=== PATIENT | female | born 1965 | race Caucasian/White ===

== ENCOUNTER → 2016-11-27 | Day surgery (SDC) | payer OTHER ==
[~2016-11-27] VITALS: Ht 160 cm; Wt 79.0 kg
[~2016-11-27] MED LIST: CEPH-460 PO; CHLORHEXIDINE GLUCONATE 2 % 1 PACK (2 CLOTHS) TOPICAL PRN; FAMOTIDINE 20 MG/2 ML VIAL ONE; INSULIN HUMAN REGULAR 1,000 UNITS/10 ML VIAL SQ PRN; LACTATED RINGER'S 1000 ML IV PRN; LEVO137T2 PO; METOPROLOL TARTRATE 25 MG TAB PO PRN; MIDAZOLAM HCL 2 MG/2 ML VIAL ONE; NORC5TAB PO; POVIDONE IODINE 5% (ANTISEPSIS KIT) 4 APPLICATIONS EACH NARE PRN; PROPOFOL 200 MG/20 ML AMP IV ONE; SODIUM CHLORID 0.9% 500 ML IV PRN; TRAM50TA PO; ceFAZolin 1,000 MG/NS 100 ML IV SCH
[2016-11-27] MEDS: BUPIVACAINE HCL PF 0.5% 30 ML VIAL ONE ×2 (08:50→10:15)
[2016-11-27] MEDS: NEOMYCIN/POLYMYXIN 1 ML G.U. IRRIGANT ONE ×2 (08:50→10:15)
[2016-11-27] MEDS: LIDOCAINE HCL 2% 50 ML VIAL ONE ×2 (08:50→10:15)
[2016-11-27 09:00] VITALS: BP 139/94; PULSE 93; RESP 18; TEMP 98.2; O2SAT 100
[2016-11-27 09:23] LABS: HEMATOCRIT 42.4 % (35.0-46.0); MEAN CELL VOLUME 89.1 FL (80.0-100.0); MEAN CORPUSCULAR HEMOGLOBIN 31.5 PG (27.0-34.0); MEAN CORPUSCULAR HGB CONC 35.3 % (32.0-36.0); PLATELET COUNT 334 TH/MM3 (150-450); RED BLOOD COUNT 4.75 MIL/MM3 (4.00-5.30); RED CELL DISTRIBUTION WIDTH 11.6 % (11.6-17.2); REVIEW FLAG FINAL; WHITE BLOOD COUNT 8.1 TH/MM3 (4.0-11.0)
[2016-11-27 10:46] VITALS: TEMP 97.7
[2016-11-27 11:45] VITALS: BP 119/86; PULSE 95; RESP 14; O2SAT 97
--- NOTE | 2016-11-28 14:43 | MP ---
cc: CHEMA ANTONIO III, M.D. DATE OF SURGERY: 11/27/2016 PREOPERATIVE DIAGNOSIS Left volar wrist mass. POSTOPERATIVE DIAGNOSIS Left volar wrist mass. PROCEDURE Left volar wrist mass excisional biopsy. SURGEON Chema Last III, MD DETAILS OF PROCEDURE The patient was brought into the operating room and placed supine on the operating table. After the correct site and side of surgery were verified by members of each team in the room multiple times including the patient and myself and after adequate preoperative markings and preoperative written consent were verified by everyone, and after adequate IV sedation had been achieved, the left upper extremity was prepped and draped in the traditional sterile surgical fashion. A 50/50 mixture of 2% plain lidocaine and 0.5% plain Marcaine was infiltrated in the skin and subcutaneous tissue overlying the mass and deep to it and into the wrist joint. The limb was exsanguinated with an Khalif wrap. A highly placed well-padded axillary tourniquet was inflated to 200 mmHg for approximately 15 minutes. A transverse oriented incision was made in the skin crease overlying the mass. Blunt dissection was performed. Bipolar electrocautery was used as needed. The radial artery was identified and protected the entire time. The mass was clear and cystic in appearance, much like a ganglion. It was dissected free from the surrounding tissue down to the wrist joint, excised in its entirety and passed off the field as specimen. The tract down to the base was debrided with a curet and then a minimal amount of bipolar electrocautery. Thorough irrigation was performed. There were no other anatomic abnormalities identified. The axillary tourniquet was released. The hand and all the fingers became immediately soft, pink and warm on the left and had brisk capillary refill of less than two seconds. The radial artery did not have any active bleeding from it, no sign of injury. The subcutaneous tissue was re-approximated using 4-0 Vicryl sutures and the skin edges re-approximated using running subcuticular 4-0 Monocryl. The hand and arm were thoroughly cleansed and dried. A fluffy bulky dressing was then applied to the patient. A short-arm left volar wrist immobilizing splint was made in the usual fashion. The patient was awakened from anesthesia and transported to the post-anesthesia care unit awake and in stable condition at the end of the case. The sponge, needle and instrument counts were correct at the end of the case as reported by the nurses in the room. MD BUDDY Lane III/MAGALYS /10:58 AM /2:34 PM
== END | disposition home or self-care (01) ==
LOC: PHSDC 06:57
PROVIDERS: ATTEND Orthopaedic Surgery Hand Surgery
DX: M67.432 Ganglion, left wrist (principal)
CPT/HCPCS: 25111; 36415; 85027; 88304; J0690; J2250; J7120; 88305